=== PATIENT | male | born 1980 | race African-American/Black ===

== ENCOUNTER 2023-05-21 19:20 | Emergency (ER) | payer OTHER ==
[~2023-05-21] VITALS: Ht 172.7 cm; Wt 90.0 kg
[2023-05-21 19:30] VITALS: BP 146/85; PULSE 90; RESP 18; TEMP 98.6
[2023-05-21] MEDS ORDERED: LIDOCAINE 5% TRANSDERMAL PATCH TD ONE (20:00)
[2023-05-21] MEDS ORDERED: KETOROLAC TROMETHAMINE 30 MG/ML VIAL IM ONE (20:00)
[2023-05-21] MEDS ORDERED: IBUP-1506 PO (22:02)
== END 2023-05-21 21:49 | disposition home or self-care (01) ==
LOC: EMS 19:22
DX: S46.911A Strain of unspecified muscle, fascia and tendon at shoulder and upper arm level, right arm, initial encounter (principal); X58.XXXA Exposure to other specified factors, initial encounter; Y93.89 Activity, other specified; Y92.89 Other specified places as the place of occurrence of the external cause; Y99.0 Civilian activity done for income or pay
CPT/HCPCS: 99283; 96372; J1885